=== PATIENT | male | born 2000 | race Two or more races ===

== ENCOUNTER 2023-11-02 10:31 | Emergency (ER) | payer OTHER ==
[~2023-11-02] VITALS: Ht 162.6 cm; Wt 65.9 kg
[2023-11-02] MEDS: NS 1,000 ML IV ONE (11:48)
[2023-11-02] MEDS: METOCLOPRAMIDE INJ 10MG/2ML VIAL IV ONE (11:49)
[2023-11-02] MEDS: KETOROLAC 30 MG/ML 1ML VIAL IV ONE (11:49)
[2023-11-02 12:21] LABS: BASO # 0.1 10^3/uL (0.0-0.2); BASO % 1.1 % (0.0-1.0); EOS # 0.1 10^3/uL (0.0-0.5); EOS % 1.4 % (0.0-3.0); HEMATOCRIT 48.7 % (42.0-52.0); HEMOGLOBIN 16.2 g/dl (13.5-17.5); LYMPH # 1.6 10^3/uL (1.5-5.0); LYMPH % 29.4 % (24.0-44.0); MEAN CORPUSCULAR HEMOGLOBIN 29.1 pg (27.0-33.0); MEAN CORPUSCULAR HGB CONC 33.3 g/dl (32.0-36.5); MEAN CORPUSCULAR VOLUME 87.4 fl (80.0-96.0); MONO # 0.6 10^3/uL (0.0-0.8); MONO % 9.9 % (2.0-8.0); NEUTROPHILS # 3.2 10^3/uL (1.5-8.5); NEUTROPHILS % 57.7 % (36.0-66.0); PLATELET COUNT, AUTOMATED 240 10^3/uL (150-450); RED BLOOD COUNT 5.57 10^6/uL (4.30-6.10); WHITE BLOOD COUNT 5.6 10^3/uL (4.0-10.0)
[2023-11-02 12:48] LABS: ALBUMIN 4.5 G/DL (3.2-5.2); ALKALINE PHOSPHATASE 54 U/L (46-116); ALT/SGPT 45 U/L (7.0-40); AST/SGOT 20 U/L (<34); BILIRUBIN,DIRECT 0.5 MG/DL (<0.4); BILIRUBIN,TOTAL 1.6 MG/DL (0.3-1.2); BLOOD UREA NITROGEN 15 MG/DL (9-23); CALCIUM LEVEL 9.7 MG/DL (8.5-10.1); CARBON DIOXIDE LEVEL 29 MMOL/L (20-31); CHLORIDE LEVEL 102 MMOL/L (98-107); CREATININE FOR GFR 0.72 MG/DL (0.70-1.30); FREE T4 1.05 NG/DL (0.89-1.76); GLOMERULAR FILTRATION RATE > 60.0 (>60); GLUCOSE, FASTING 84 MG/DL (60-100); MAGNESIUM LEVEL 1.8 MG/DL (1.8-2.4); POTASSIUM SERUM 4.1 MMOL/L (3.5-5.1); SODIUM LEVEL 136 MMOL/L (136-145); THYROID STIMULATING HORMONE 1.496 uIU/ML (0.55-4.78); TOTAL PROTEIN 8.1 G/DL (5.7-8.2)
[2023-11-02 12:51] LABS: CPK CREATINE PHOSPHOKINASE 137 U/L (46-171)
[2023-11-02] MEDS ORDERED: SUMA50TA2 PO (13:00)
[2023-11-02 13:13] VITALS: BP 120/72; TEMP 97.7; O2SAT 100
== END 2023-11-02 13:21 | disposition home or self-care (01) ==
LOC: M ED 10:31 → EDBD 10:31 → M ED 13:21
DX: R51.9 Headache, unspecified (principal); F10.10 Alcohol abuse, uncomplicated; Z79.899 Other long term (current) drug therapy
CPT/HCPCS: 70450; 80048; 80076; 82550; 83735; 84439; 84443; 85025; 96361; 96374; 99284; J1885; J2765

== ENCOUNTER → 2024-04-24 | Outpatient (CLI) | payer OTHER ==
[~2024-04-24] MED LIST: SUMA50TA2 PO
== END ==
LOC: M RAD 13:52
PROVIDERS: ATTEND Physician Assistant
DX: R06.00 Dyspnea, unspecified (principal); R91.8 Other nonspecific abnormal finding of lung field

== ENCOUNTER → 2024-06-15 | Outpatient (REF) | LOC: M PLAIMG 08:39 | PROVIDERS: ATTEND Internal Medicine | DX: R06.02 Shortness of breath (principal); M54.6 Pain in thoracic spine; M41.9 Scoliosis, unspecified; M51.46 Schmorl's nodes, lumbar region ==

== ENCOUNTER → 2024-09-18 | Outpatient (CLI) | payer OTHER ==
[~2024-09-18] MED LIST changes: +METHACHOLINE KIT (6 VIAL.NEB PREMIX) INH ONE
== END ==
LOC: M CARPUL 07:29
PROVIDERS: ATTEND Physician Assistant
DX: R06.00 Dyspnea, unspecified (principal)
CPT/HCPCS: 94070; 95070; J7674